=== PATIENT | female | born 1940 | race Caucasian/White ===

== ENCOUNTER 2018-06-05 11:56 | Emergency (ER) | payer MEDICARE ==
[~2018-06-05] VITALS: Ht 165.1 cm; Wt 56.7 kg
[2018-06-05] MEDS ORDERED: ONDANSETRON 4 MG/2 ML VIAL IV ONE (12:15)
[2018-06-05] MEDS ORDERED: MORPHINE SULFATE 2 MG/1 ML DISP.SYRIN IV ONE ×2 (12:15→13:00)
[2018-06-05] MEDS ORDERED: IV NORMAL SALINE 500 ML BAG IV ONE (12:15)
[2018-06-05] MEDS ORDERED: MORPHINE SULFATE 2 MG/1 ML DISP.SYRIN ONE ×2 (12:18→12:51)
[2018-06-05] MEDS ORDERED: ONDANSETRON 4 MG/2 ML VIAL ONE (12:18)
[2018-06-05] MEDS ORDERED: SWABABLE VALVE TRANSFER SET EA MC ONE (12:22)
[2018-06-05 12:23] LABS: BASOPHILS # (AUTO) 0.1 K/uL (0.0-8.0); BASOPHILS % (AUTO) 0.7 % (0.0-2.0); EOSINOPHILS # (AUTO) 0.3 K/uL (0.0-0.7); EOSINOPHILS % (AUTO) 2.8 % (0.0-7.0); HEMATOCRIT 33.1 % (31.2-41.9); HEMOGLOBIN 11.3 g/dL (10.9-14.3); LYMPHOCYTES # (AUTO) 1.6 K/uL (20.0-40.0); LYMPHOCYTES % (AUTO) 17.6 % (20.5-51.5); MEAN CORPUSCULAR HEMOGLOBIN 31.9 uug (24.7-32.8); MEAN CORPUSCULAR HGB CONC 34 g/dL (32.3-35.6); MEAN CORPUSCULAR VOLUME 93.4 fL (75.5-95.3); MONOCYTES % (AUTO) 10.6 % (0.0-11.0); NEUTROPHILS # (AUTO) 6.2 K/uL (1.8-8.9); NEUTROPHILS % (AUTO) 68.3 % (38.5-71.5); PLATELET COUNT (AUTO) 278 K/uL (179-408); RED BLOOD CELL COUNT(AUTO) 3.54 MIL/uL (3.63-4.92)
[2018-06-05] MEDS ORDERED: IOHEXOL 300MG/ML 100 ML INFUS..BTL ONE (12:23)
[2018-06-05] MEDS ORDERED: IV NORMAL SALINE 250 ML IV ONE (12:23)
[2018-06-05] MEDS ORDERED: ATOR20TA PO (12:25)
[2018-06-05] MEDS ORDERED: ASPI81TA31 PO (12:25)
[2018-06-05] MEDS ORDERED: LISI-603 PO (12:25)
--- NOTE | 2018-06-05 12:30 | NUR ---
RECEIVED A 77 Y/O FEMALE PT C/O ABD PAIN, NAUSEA. UPON ARRIVAL 12 LEAD EKG DONE, SEEN BY MD ASSESSMENT DONE, IV INSERTED ON RT AC G20. CXRAY DONE, LAB WORKUP SENT.
[2018-06-05 12:33] LABS: CARBON DIOXIDE 22 mmol/L (21-32); CHLORIDE 101 mmol/L (98-107); CREATININE 1.2 mg/dL (0.6-1.3); GLUCOSE 159 mg/dL (74-106); POTASSIUM 3.2 mmol/L (3.5-5.1); UREA NITROGEN, BLOOD 20 mg/dL (7-18)
[2018-06-05 12:38] LABS: ALANINE AMINOTRANSFERASE 26 U/L (14-59); ALKALINE PHOSPHATASE 111 U/L (50-136); ASPARTATE AMINOTRANSFERASE 27 U/L (15-37); BILIRUBIN,DIRECT 0.1 mg/dL (0.0-0.2); BILIRUBIN,TOTAL 0.5 mg/dL (0.2-1.0); LIPASE 114 U/L (73-393); TOTAL PROTEIN, SERUM 8.2 g/dL (6.4-8.2)
--- NOTE | 2018-06-05 13:00 | NUR ---
CONSENT SIGNED FOR CT SCAN WITH CONTRAST, PT SENT TO RADIOLOGY UNIT AND BACK
[2018-06-05 14:30] LABS: *BILIRUBIN,URIN NEGATIVE (NEGATIVE); *BLOOD, URINE 1+ (NEGATIVE); *CLARITY,URINE SLIGHTLY CLOUDY (CLEAR); *COLOR,URINE YELLOW (YELLOW); *KETONES,URINE NEGATIVE (NEGATIVE); *UROBILINOGEN,URINE 0.2 E.U./dl (NORMAL); LEUKOCYTE ESTERASE ,URINE 2+ (NEGATIVE); NITRITE, URINE NEGATIVE (NEGATIVE); PH,URINE 5.5 (5.0-8.0); UGLUCOSE NEGATIVE (NEGATIVE)
[2018-06-05 14:42] LABS: BACTERIA,URINE FEW /HPF (NONE SEEN); SQUAMOUS EPITHELIAL CELL,UR FEW /HPF (NONE SEEN)
[2018-06-05] MEDS ORDERED: LEVOFLOXACIN 750MG/D5W 150 ML IV ONE ×2 (14:45→14:52)
== END 2018-06-05 17:32 | disposition home or self-care (01) ==
LOC: ER 11:56 → EDBD 11:56 → ER 17:32
DX: N39.0 Urinary tract infection, site not specified (principal); R11.2 Nausea with vomiting, unspecified; Z88.0 Allergy status to penicillin; Z79.82 Long term (current) use of aspirin; Z79.899 Other long term (current) drug therapy; Z90.49 Acquired absence of other specified parts of digestive tract
CPT/HCPCS: 36415; 74177; 80048; 80076; 81001; 83690; 84484; 85025; 93005; 96365; 96375; 99284; J1956; J2270 ×2; J2405; Q9967; 70030-TC; A4663; J7030; J7050